=== PATIENT | male | born 1980 | race Two or more races ===

== ENCOUNTER 2018-10-16 19:38 | Emergency (ER) | payer OTHER ==
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
[2018-10-16 19:49] VITALS: BMI 35.6
[2018-10-16] MEDS ORDERED: ACETAMINOPHEN 500 MG TABLET (FP) PO ONE (19:52)
[2018-10-16] MEDS ORDERED: ACETAMINOPHEN 325 MG TABLET (FP) ONE ×2 (19:54→19:57)
[2018-10-16] MEDS ORDERED: morphine CARPU-JECT 4 MG/1 ML DISP.SYRIN IM ONE (20:21)
[2018-10-16] MEDS ORDERED: morphine SULFATE 4 MG/ML VIAL ONE (20:30)
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
[2018-10-16 22:41] VITALS: BP 134/72; PULSE 90; TEMP 98.4
== END 2018-10-16 22:41 | disposition home or self-care (01) ==
LOC: JER 19:38
PROC: 3E023NZ Introduction of Analgesics, Hypnotics, Sedatives into Muscle, Percutaneous Approach (ICD-10-PCS; principal; 2018-10-16)
DX: M54.5 Low back pain (principal); R51 Headache; Y04.2XXA Assault by strike against or bumped into by another person, initial encounter; Y93.89 Activity, other specified; Y92.89 Other specified places as the place of occurrence of the external cause; Y99.8 Other external cause status; Y07.6 Multiple perpetrators of maltreatment and neglect
CPT/HCPCS: 70450-TC; 70486-TC; 71045-TC-FY; 72125-TC; 72170-TC-FY; 82962; 96372; 99285-25